=== PATIENT | female | born 1945 | race Caucasian/White ===

== ENCOUNTER 2019-07-23 11:11 | Inpatient (IN) | payer OTHER ==
[2019-07-23] VITALS: BP_SYST 144
[~2019-07-23] VITALS: Ht 157.5 cm; Wt 57.6 kg
--- NOTE | 2019-07-23 11:25 | NUR ---
Patient to ER bed 07 to gown for evaluation. Side rails up.
--- NOTE | 2019-07-23 11:26 | NUR ---
Pt brought by , A&Ox4, pt presents to ER with R upper abdominal pain and nausea x 6 days, skin pink and warm, cap refill <3, VSS, respirations even and unlabored, pt states ahe has Hx of gallstones, no N/V noted, afebrile.
[2019-07-23 11:27] VITALS: BP_SYST 126
[2019-07-23] MEDS ORDERED: NACL 0.9% 1,000 ML IV ONE (11:33)
[2019-07-23] MEDS ORDERED: MORPHINE 2 MG/ML INJ. SYRINGE IVP ONE ×2 (11:45→16:00)
[2019-07-23] MEDS ORDERED: ONDANSETRON HCL 4 MG/2 ML VIAL IVP ONE (11:45)
--- NOTE | 2019-07-23 11:50 | NUR ---
# 22 gauge angiocath placed to LAC. Use of asceptic technique. Opsite placed over site. Blood return noted. Blood for lab drawn from site. Flushed with 10 cc of normal saline. No evidence of infiltration noted. Patient tolerated well.
--- NOTE | 2019-07-23 11:52 | NUR ---
ECG done at bedside as ordered by Dr. Kumari. Patient tolerated the procedure well.
[2019-07-23 12:11] LABS: BASOPHILS % (AUTO) 0.7 % (0.0-2.0); EOSINOPHILS # (AUTO) 0.1 K/uL (0.0-0.4); EOSINOPHILS % (AUTO) 1.4 % (0.0-4.0); HEMOGLOBIN 12.1 g/dL (12.0-16.0); LYMPHOCYTES % (AUTO) 17.8 % (20.5-51.5); MEAN CORPUSCULAR HEMOGLOBIN 31 pg (27-31); MEAN CORPUSCULAR HGB CONC 34 % (32-36); MEAN CORPUSCULAR VOLUME 94 fL (79.0-98.0); MONOCYTES # (AUTO) 0.4 K/uL (0.0-1.0); MONOCYTES % (AUTO) 7.7 % (1.7-9.3); NEUTROPHILS % (AUTO) 72.4 % (40.0-70.0); PLATELET COUNT (AUTO) 264 K/uL (130-430); RED BLOOD CELL COUNT(AUTO) 3.84 MIL/uL (4.2-6.2); RED CELL DISTRIBUTION WIDTH 13.5 % (9.0-15.0); WHITE BLOOD COUNT (AUTO) 5.6 K/uL (4.8-10.8)
--- NOTE | 2019-07-23 12:56 | NUR ---
Dr Kumari at bedside examining patient
[2019-07-23 13:29] LABS: ANION GAP 8 (5-15); CALCIUM 8.5 mg/dL (8.4-11.0); CHLORIDE 95 mmol/L (98-107); CREATININE 1.13 mg/dL (0.55-1.30); GLUCOSE 88 mg/dL (70-99); POTASSIUM 3.8 mmol/L (3.5-5.1); SODIUM SERUM 127 mmol/L (136-145); UREA NITROGEN, BLOOD 26 mg/dL (8-21)
[2019-07-23 13:37] LABS: ALANINE AMINOTRANSFERASE 18 U/L (12-78); ALBUMIN 3.6 g/dL (3.4-4.8); ASPARTATE AMINOTRANSFERASE 18 U/L (10-37); TOTAL BILIRUBIN 0.7 mg/dL (0.0-1.0)
--- NOTE | 2019-07-23 14:05 | NUR ---
Patient's IV is out. Tried to put another one but to no avail.
[2019-07-23 14:53] LABS: BILIRUBIN,URINE NEGATIVE (NEGATIVE); BLOOD, URINE NEGATIVE (NEGATIVE); CLARITY/URINE CLEAR (CLEAR); COLOR,URINE YELLOW (YELLOW); GLUCOSE,URINE NEGATIVE (NEGATIVE); KETONES,URINE NEGATIVE (NEGATIVE); LEUKOCYTE ESTERASE ,URINE NEGATIVE (NEGATIVE); NITRITE, URINE NEGATIVE (NEGATIVE); PROTEIN URINE NEGATIVE (NEGATIVE); UROBILINOGEN,URINE 0.2 (0.2-1.0)
--- NOTE | 2019-07-23 15:00 | NUR ---
Patient ambulated to the bathroom with a steady gait.
--- NOTE | 2019-07-23 15:15 | NUR ---
Received orders from Dr. Brunner.
--- NOTE | 2019-07-23 15:22 | NUR ---
Patient stated she's not taking any medications at home. Belonging's list done.
--- NOTE | 2019-07-23 16:30 | NUR ---
Report called in to KANDIS Dumont.
[2019-07-23] MEDS ORDERED: ACETAMINOPHEN 325 MG TABLET PO PRN (16:45)
[2019-07-23] MEDS ORDERED: METOCLOPRAMIDE HCL 10 MG/2 ML VIAL IVP PRN ×2 (16:45)
[2019-07-23] MEDS ORDERED: ONDANSETRON HCL 4 MG/2 ML VIAL IVP PRN (16:45)
--- NOTE | 2019-07-23 16:54 | NUR ---
ADMISSION NOTE Received patient from ER via gurney, received report from ER. Patient admitted with diagnosis of CHOLECYSTITIS. Patient oriented to hospital routine, call light, toileting and safety-patient verbalized understanding.
--- NOTE | 2019-07-23 17:00 | NUR ---
Patient will be admitted to care of Dr. Brunner. Admitted to MS unit. Will go to room 118A. Belongings list completed. Complete and up to date summary report printed. SBAR report to be given at bedside with opportunity for questions.
[2019-07-23 17:09] VITALS: BP_SYST 151
[2019-07-23] MEDS: D5NS 1,000 ML IV SCH (18:41)
--- NOTE | 2019-07-23 18:46 | NUR ---
ENDORSEMENT WILL ENDORSE TO NEXT SHIFT CONT CARE WILL FOLLOW UP TEST DONE AND MAINTAIN NPO , PATIENT ADVISED TO CALL FOR ASSIST , CALL LIGHT WITHIN REACH Addendum: 07/23/19 at 1948 by Kitty Soliman RN TO FOLLOW UP CT SCAN OF THE ABDOMEN AND PELVIS PATIENT AWAITING FOR DR LIZARRAGA CONSULT FAMILY AND PATIENT AWARE OF THE PLAN
[2019-07-23 20:00] VITALS: BP_SYST 144
--- NOTE | 2019-07-23 22:21 | NUR ---
PAGED I PAGED DR. HELLER @ [phone] I SPOKE WITH RAMA COYNE
--- NOTE | 2019-07-23 22:28 | NUR ---
RECEIVED WITH FAMILY AT BEDSIDE ON NPO.ITH THE SAME IVF ON. DR HENRY PAGED THE PATIENT REQUESTING FOR SLEEPING MEDICATION,AWAITING RESPONSE
--- NOTE | 2019-07-23 22:54 | NUR ---
DR HENRY PAGED THE PATIENT IS REQUESTING FOR A SLEEPING MEDICATION AND THE BLOOD PRESSURE MEDICATION NORVASC PO THAT SHE TAKES DAILY. AWAITING RESPONSE
--- NOTE | 2019-07-23 23:10 | NUR ---
PAGED I PAGED DR. HELLER I SPOKE WITH KENNY THIS IS THE SECOND CALL
[2019-07-23] MEDS ORDERED: ALPRAZolam 0.25 MG TABLET PO PRN (23:30)
[2019-07-24 00:29] VITALS: BP_SYST 141
--- NOTE | 2019-07-24 00:48 | NUR ---
ALPRAZOLAM DOSE GIVEN FOR ANXIETY AND SLEEP/.ITH A SIP OF WATER
[2019-07-24] MEDS: MORPHINE 2 MG/ML INJ. SYRINGE IVP PRN (01:34)
[2019-07-24] MEDS: D5NS 1,000 ML IV SCH ×2 (06:05→20:49)
--- NOTE | 2019-07-24 07:15 | NUR ---
OPENING NOTE PT RESTING ON BED. CHEST RISE AND FALL NOTED. UNLABORED BREATHING. AT BEDSIDE. NO ACUTE DISTRESS NOTED. IV LINE INTACT AND PATENT. NO SIGNS OF INFILTRATION NOTED. FLUIDS RUNNING ORDERED PER MD. TOLERATING WELL. UPDATE ON CARE PLAN GIVEN. ALL NEEDS MET. FALL AND ASPIRATION PRECAUTIONS IN PLACE. CALL LIGHT IN REACH. BED IN LOWEST AND LOCKED POSITION. CONTINUE TO MONITOR.
[2019-07-24] MEDS: MORPHINE 4 MG/ML INJ. SYRINGE IVP PRN ×2 (07:31→20:42)
[2019-07-24 08:00] VITALS: BP_SYST 141
[2019-07-24] MEDS: amLODIPine BESYLATE 10 MG TABLET PO SCH (08:15)
--- NOTE | 2019-07-24 08:15 | NUR ---
MEDS MEDS ADMINISTERED ORDERED PER MD. EDUCATION GIVEN. TOLERATED WELL. NO ACUTE DISTRESS NOTED. AT BEDSIDE. FALL AND ASPIRATION PRECAUTIONS IN PLACE. ALL NEEDS MET. CALL LIGHT IN REACH. CONTINUE TO MONITOR.
[2019-07-24] MEDS: ONDANSETRON HCL 4 MG/2 ML VIAL IVP PRN ×2 (08:16→16:56)
--- NOTE | 2019-07-24 08:54 | NUR ---
Nutrition Update Kendell Scale 17 noted. Pt admitted for cholecystitis. Diet: NPO BMI: 23.2 kg/m2 RD to follow per nutrition care standards.
--- NOTE | 2019-07-24 09:00 | NUR ---
CHG BATH CHG BATH GIVEN PRE-OP. TOLERATED WELL.
[2019-07-24 10:24] LABS: PROTHROMBIN TIME 10.5 SECS (9.5-12.5)
--- NOTE | 2019-07-24 10:40 | NUR ---
SEEN BY DR. HENRY AT BEDSIDE.
[2019-07-24 10:59] LABS: ANION GAP 9 (5-15); CALCIUM 8.3 mg/dL (8.4-11.0); CHLORIDE 98 mmol/L (98-107); GLUCOSE 116 mg/dL (70-99); POTASSIUM 3.3 mmol/L (3.5-5.1); SODIUM SERUM 131 mmol/L (136-145); UREA NITROGEN, BLOOD 11 mg/dL (8-21)
[2019-07-24] MEDS ORDERED: ASPI-1153 PO (11:11)
[2019-07-24] MEDS ORDERED: CARV12.548 PO (11:11)
[2019-07-24] MEDS ORDERED: RANO500T2 PO (11:11)
[2019-07-24] MEDS ORDERED: LORA10TA7 PO (11:11)
[2019-07-24] MEDS ORDERED: DICL75TA5 PO (11:11)
[2019-07-24] MEDS ORDERED: ALEN10TA7 PO (11:11)
[2019-07-24] MEDS ORDERED: ISOS60TA4 PO (11:11)
[2019-07-24] MEDS ORDERED: FLUT16SP16 NS (11:11)
[2019-07-24] MEDS ORDERED: GABA-531 PO (11:11)
[2019-07-24] MEDS ORDERED: HYDR50TA3 PO (11:11)
[2019-07-24] MEDS ORDERED: VITD2000 PO (11:11)
[2019-07-24] MEDS ORDERED: ROSU20TA2 PO (11:11)
[2019-07-24 11:38] VITALS: BP_SYST 138
--- NOTE | 2019-07-24 11:40 | NUR ---
SURGERY PT TAKEN TO SURGERY. OFF THE FLOOR.
[2019-07-24] MEDS ORDERED: ONDANSETRON HCL 4 MG/2 ML VIAL IVP PRN (12:00)
[2019-07-24] MEDS ORDERED: HYDROmorphone 1 MG INJ. 1 MG/ML AMPUL IVP PRN (12:00)
[2019-07-24] MEDS ORDERED: HYDROcodone/ACETAMIN 5-325 MG TAB (NORCO/ VICODIN) PO PRN (12:45)
[2019-07-24] MEDS: HYDROmorphone 1 MG INJ. 1 MG/ML AMPUL IVP PRN ×2 (12:55→13:15)
[2019-07-24] MEDS ORDERED: HYDROmorphone 1 MG INJ. 1 MG/ML AMPUL ONE ×2 (13:08→13:24)
--- NOTE | 2019-07-24 14:10 | NUR ---
ON UNIT PATIENT ON UNIT FROM PACU. REPORT RECEIVED FROM KANDIS LARKIN AT BEDSIDE. PATIENT RECEIVED A LAPROSCOPIC CHOLECYSTECTOMY WITH X2 INCISIONS NOTED TO RUQ AND X1 INCISION NOTED ABOVE UMBILICUS. VITAL SIGN STABLE BP 153/82 HR 84 T 96.7 RR 18 ROOM AIR SpO2@91%. REPOSITIONED FOR COMFORT. AT BEDSIDE. CALL LIGHT IN REACH. CONT TO MONITOR
[2019-07-24 14:25] VITALS: BP_SYST 156
--- NOTE | 2019-07-24 15:00 | NUR ---
IS INSTRUCTED PATIENT ON INCENTIVE SPIROMETER USE. TEACHING DONE AND FOR PATIENT TO DO IT 10X/HR EVERY HOUR. PATIENT VERBALIZED UNDERSTANDING AND DEMONSTRATED USE; ABLE TO TO A LITTLE THAN 500 CC
--- NOTE | 2019-07-24 16:10 | NUR ---
ROUNDS PT RESTING IN BED. CHEST RISE AND FALL NOTED. AT BEDSIDE. NO ACUTE DISTRESS NOTED. CALL LIGHT IN REACH. FALL AND ASPIRATION PRECAUTIONS IN PLACE. ALL NEEDS MET. CONTINUE TO MONITOR.
--- NOTE | 2019-07-24 17:07 | NUR ---
PRN MEDICATIONS PRN MEDICATIONS ADMINISTERED ORDERED PER MD. EDUCATION GIVEN. TOLERATED WELL. NO ACUTE DISTRESS NOTED. ALL NEEDS MET. FAMILY AT BEDSIDE. CALL LIGHT IN REACH. FALL AND ASPIRATION PRECAUTIONS IN PLACE. CONTINUE TO MONITOR.
--- NOTE | 2019-07-24 18:52 | NUR ---
CLOSING NOTES PT RESTING IN BED. CHEST RISE AND FALL NOTED. NO ACUTE DISTRESS NOTED. IV INTACT AND PATENT. NO SIGNS OF INFILTRATION. FALL AND ASPIRATION PRECAUTIONS IN PLACE. ALL NEEDS MET. CALL LIGHT IN REACH. WILL ENDORSE TO NOC NURSE.
--- NOTE | 2019-07-24 19:15 | NUR ---
OPENING NOTES RECEIVED PATIENT IN BED AWAKE. BREATHING UNLABORED ON ROOM AIR. NO C/O PAIN AT THIS TIME. FAMILY AT BEDSIDE. BED IN LOWEST LOCKED POSITION. CALL LIGHT WITH IN REACH.
[2019-07-24 20:33] VITALS: BP_SYST 149
--- NOTE | 2019-07-24 20:42 | NUR ---
PAIN MGT PATIENT MEDICATED WITH MORPHINE FOR C/O ABDOMINAL PAIN 04/18. VITAL SIGNS STABLE. AT BEDSIDE.
--- NOTE | 2019-07-25 00:29 | NUR ---
ROUNDS PATIENT RESTING IN BED. NO DISTRESS NOTED. AT BEDSIDE. VITAL SIGNS STABLE. CALL LIGHT WITH IN REACH.
[2019-07-25 01:23] VITALS: BP_SYST 153
[2019-07-25] MEDS: ONDANSETRON HCL 4 MG/2 ML VIAL IVP PRN (01:49)
[2019-07-25] MEDS: MORPHINE 2 MG/ML INJ. SYRINGE IVP PRN (02:03)
--- NOTE | 2019-07-25 02:06 | NUR ---
PAIN/ NAUSEA: PT CALLED AND C/O NAUSEA AND VOMITING ,NOTICED CLEAR LESS THAN 20 CC VOMITING , PROVIDED ZOFRAN , PT GOT UP WITH ASSIST AND USED RESTROOM , PT VOIDED WELL ,ASSISTED PT TO BACK TO BED AFTER CLEANING . THEN PT STARTED C/O MODERATE PAIN , PROVIDED MORPHINE PER ORDER . FAMILY AT BEDSIDE . PRIMARY RN IS ON BREAK WILL NOTIFY HER ONCE SHE IS BACK .
--- NOTE | 2019-07-25 03:46 | NUR ---
ROUNDS PATIENT RESTING IN BED. NO DISTRESS NOTED. CALL LIGHT WITH IN REACH. IVF INFUSING.
--- NOTE | 2019-07-25 06:22 | NUR ---
CLOSING NOTES PATIENT RESTING IN BED. BREATHING UNLABORED ON ROOM AIR. IVF INFUSING ORDERED. PATIENT NEEDS ATTENDED. CALL LIGHT WITH IN REACH. BED IN LOWEST LOCKED POSITION WITH ALARM ON. AT BEDSIDE.
--- NOTE | 2019-07-25 07:15 | NUR ---
OPENING NOTE PT AWAKE AND ALERT. NO ACUTE DISTRESS NOTED. IV INTACT AND PATENT, NO SIGNS OF INFILTRATION. FLUIDS RUNNING ORDERED. TOLERATING WELL. PT STATES HAVING PAIN IN ABDOMEN AREA. WILL ADMINISTER PAIN MEDICATIONS. GAVE EDUCATION ON INCENTIVE SPIROMETER. PT STATES NOT HAVING PASSED GAS SINCE SURGERY. NO DISTENTION NOTED. SOFT ABDOMEN. NORMOACTIVE BOWEL SOUNDS AUSCULTATED ON ALL FOUR QUADRANTS. ALL NEEDS MET. CALL LIGHT IN REACH. FALL AND ASPIRATION PRECAUTIONS IN PLACE. CONTINUE TO MONITOR.
[2019-07-25 07:45] VITALS: BP_SYST 143
[2019-07-25] MEDS: D5NS 1,000 ML IV SCH (07:46)
[2019-07-25] MEDS: MORPHINE 4 MG/ML INJ. SYRINGE IVP PRN (07:47)
[2019-07-25] MEDS: amLODIPine BESYLATE 10 MG TABLET PO SCH (08:06)
--- NOTE | 2019-07-25 08:06 | NUR ---
MEDS PRN PAIN MEDS AND ROUTINE MEDS ADMINISTERED ORDERED PER MD. EDUCATION GIVEN. TOLERATED WELL. NO ACUTE DISTRESS NOTED. ALL NEEDS MET. CALL LIGHT IN REACH. FALL AND ASPIRATION PRECAUTIONS IN PLACE. CONTINUE TO MONITOR.
--- NOTE | 2019-07-25 10:06 | NUR ---
ROUNDS PT AWAKE AND ALERT IN BED. AT BEDSIDE. NO ACUTE DISTRESS NOTED. NONLABORED BREATHING. SURGICAL SITES DRY. NO DRAINAGE NO ODOR NOTED. ALL NEEDS MET. FALL AND ASPIRATION PRECAUTIONS IN PLACE. IV INTACT AND PATENT. FLUID RUNNING ORDERED. TOLERATING WELL. CALL LIGHT IN REACH. CONTINUE TO MONITOR.
[2019-07-25] MEDS ORDERED: NS 1000 ML IV.SOLN IV ONE (11:06)
[2019-07-25] MEDS ORDERED: NS IRRIG SOLN 1000 ML IR ONE (11:06)
[2019-07-25] MEDS ORDERED: LR 1,000 ML IV.SOLN IV ONE (11:06)
[2019-07-25] MEDS ORDERED: ePHEDrine sulfate 50 MG/ML VIAL IVP ONE (11:06)
[2019-07-25] MEDS ORDERED: DEXAMETHASONE SOD PHOSPHATE 4 MG/ML VIAL IVP ONE (11:06)
[2019-07-25] MEDS ORDERED: CEFAZOLIN 2 GM IVPB PREMIX 50 ML IV ONE (11:06)
[2019-07-25] MEDS ORDERED: LIDOCAINE/EPI 1% 1:100000 20 ML VIAL INJ ONE (11:06)
[2019-07-25 11:37] VITALS: BP_SYST 149
[2019-07-25 11:39] VITALS: BP_SYST 154
--- NOTE | 2019-07-25 11:51 | NUR ---
SPOKE TO AND PATIENT IS CLEARED BY MD TO DISCHARGE HOME
--- NOTE | 2019-07-25 12:45 | NUR ---
D/C Patient Patient given medication reconciliation form and D/C instructions. Exit Care provided. Patient verbalized understanding. MD discussed with patient the results and treatment provided. Ambulatory with assist for discharge to home. Patient in stable condition, ID band removed. IV catheter removed, intact and dressing applied, no active bleeding. Patient educated on pain management. All belongings sent with patient.
== END 2019-07-25 12:15 | disposition home or self-care (01) | DRG 418 ==
LOC: SED 11:11 → SMU 15:04
PROVIDERS: ADMIT Internal Medicine Hospice and Palliative Medicine; ATTEND Internal Medicine Hospice and Palliative Medicine
PROC: 0FT44ZZ Resection of Gallbladder, Percutaneous Endoscopic Approach (ICD-10-PCS; principal; 2019-07-24 11:06)
DX: K80.00 Calculus of gallbladder with acute cholecystitis without obstruction (principal); E87.1 Hypo-osmolality and hyponatremia; F41.9 Anxiety disorder, unspecified; I10 Essential (primary) hypertension; I25.10 Atherosclerotic heart disease of native coronary artery without angina pectoris; Z95.1 Presence of aortocoronary bypass graft; Z90.710 Acquired absence of both cervix and uterus
CPT/HCPCS: 36415; 71045; 76700-TC; 80048; 80053; 81003; 84484; 85025; 85610-TC; 85730-TC; 87081; 88304; 93005; 94010; 96361; 96374; 96375; 96376; 99285; C1727; J0690; J1100; J1170; J2270; J2405; J7030; J7042; J7120